=== PATIENT | male | born 1970 | race Native Hawaiian/Other Pacific Islander ===

== ENCOUNTER 2019-12-27 20:59 | Outpatient (CLI) | payer OTHER ==
[~2019-12-27 20:59] MED LIST: ACET5TAB36 PO; ATEN25TA21 PO; ATEN50TA36 PO; BENAZEPRIL; CEFD300C2 PO; COUMADIN1 MG PO; COUMADIN10 MG OR; DILTCAP11 PO; FLUT0.05 NAS; FURO20TA67 PO; GABA100C2 PO; GABA300C2 PO; INDOMETHACIN50 MG PO; JANUVIA50 MG OR; LEVO0.0218 PO; LOTENSIN40 MG PO; METF500T PO; MEVACOR40 MG OR; PEPCID40 MG OR; PEPCID40 MG PO; PHENTERMINE37.5 M1 PO; SPIRONOLACT25 MG PO; TESTOST CYP100 MG/ML IM; TESTOST CYP200 MG/ML IM; TRIM800T12 PO
== END 2019-12-27 22:43 | disposition home or self-care (01) ==
LOC: RAD 20:59
DX: M25.511 Pain in right shoulder (principal); M79.601 Pain in right arm